=== PATIENT | male | born 1970 | race Caucasian/White ===

== ENCOUNTER 2017-07-19 18:57 | Emergency (ER) | payer BC, MEDICARE ==
[2017-07-19 19:04] VITALS: BP 146/97; PULSE 74; O2SAT 96
[2017-07-19] MEDS ORDERED: NEOSYNEPHRINE 0.5% NASAL SPRAY/DROPS NS ONE (19:15)
[2017-07-19] MEDS ORDERED: NEOSYNEPHRINE 0.5% NASAL SPRAY/DROPS ONE (19:20)
--- NOTE | 2017-07-19 19:22 | ERPHSYRPT ---
- History of Present Illness Time Seen by Provider: 07/19/17 19:10 Source: patient Exam Limitations: no limitations Patient Subjective Stated Complaint: nosebleed x 2 days; just won't stop Triage Nursing Assessment: dried blood to left nare, clamp in place on bridge of nose to control bleeding. AAO x 3 Physician History: This is a 46-year-old white male with history of myocardial infarction, high blood pressure, hypercholesterolemia and nosebleeds He arrives with complaint of bleeding off-and-on in his left naris for 2 days he states he's having a hard time stopping it today. He states he gets this occasionally he has been placing bacitracin and his nose. Past medical history includes myocardial infarction, high blood pressure, hypercholesterolemia, nosebleed Past surgical history includes cardiac stents, cholecystectomy, hernia repair Social history is positive for tobacco use patient denies alcohol or illicit drug use Severity: mild ENT Location: nose (bleeding from left nostril) Prearrival Treatment: squeezing nostrils Modifying Factors: Improves With: nothing Associated Symptoms: No ear pain (R), No ear pain (L), No cough, No fever, No chills, No change in hearing, No dizziness, No drooling, No ear drainage, No facial pain/swelling, No hearing loss, No jaw pain, No malaise, No nasal foreign body, No neck pain, No poor fluid intake, No poor solids intake, No ringing of ears, No swollen glands, No sinus infection, No sore throat, No tooth pain, No difficulty swallowing, No voice change Allergies/Adverse Reactions: atorvastatin calcium [From Lipitor] Allergy (Severe, Verified 09/03/15 16:24) Rash Home Medications: Carvedilol [Coreg] 25 mg PO BID 01/11/14 [History] Isosorbide Mononitrate 30 mg [Imdur 30 MG] 60 mg PO DAILY 01/11/14 [History ] Levothyroxine Sodium 125 mcg PO DAILY 01/11/14 [History] Pravastatin Sodium 40 mg PO HS 01/11/14 [History] Aspirin EC 325 mg [Ecotrin 325 MG] 325 mg PO DAILY 01/09/15 [History] Nifedipine [Procardia Xl] 30 mg PO DAILY 09/03/15 [History] Hx Tetanus, Diphtheria Vaccination/Date Given: No Hx Influenza Vaccination/Date Given: No Hx Pneumococcal Vaccination/Date Given: No Immunizations Up to Date: Yes - Review of Systems Constitutional: No Fever, No Chills Eyes: No Symptoms Ears, Nose, & Throat: No Symptoms, Epistaxis, No Ear Pain (anything [place] for this him hi), No Ear Discharge (m him. ), No Hearing Changes, No Tinnitus Respiratory: No Cough, No Dyspnea Cardiac: No Chest Pain, No Edema, No Syncope Abdominal/Gastrointestinal: No Abdominal Pain, No Nausea, No Vomiting, No Diarrhea, No Constipation, No Hematemesis, No Hematochezia, No Melena, No Dysphagia, No Appetite Changes Genitourinary Symptoms: No Dysuria Musculoskeletal: No Back Pain, No Neck Pain Skin: No Rash Neurological: No Dizziness, No Focal Weakness, No Sensory Changes Psychological: No Symptoms Endocrine: No Symptoms All Other Systems: Reviewed and Negative - Past Medical History Pertinent Past Medical History: Yes Neurological History: No Pertinent History ENT History: Other Cardiac History: Myocardial Infarction ([place]) Respiratory History: No Pertinent History Endocrine Medical History: Hypothyroidism Musculoskeletal History: Degenerative Disk Disease GI Medical History: GERD, Hernia History: No Pertinent History Psycho-Social History: Anxiety Male Reproductive Disorders: No Pertinent History Other Medical History: Nosebleeds - Past Surgical History Past Surgical History: Yes Neuro Surgical History: No Pertinent History Cardiac: Cardiac Catheterization, Cardiac Stent Respiratory: No Pertinent History Gastrointestinal: Cholecystectomy, Hernia Repair Genitourinary: No Pertinent History Musculoskeletal: Orthopedic Surgery Male Surgical History: No Pertinent History Other Surgical History: Lower spinal compression fractures repaired. Patient has pain in cervical spine area that has not been diagnosed or treated. - Social History Smoking Status: Current every day smoker How long have you smoked: 27 Exposure to second hand smoke: Yes Drug Use: none Patient Lives Alone: No Significant Family History: heart disease, FAMILY HISTORY OF CAD - Nursing Vital Signs Nursing Vital Signs: Initial Vital Signs Temperature 97.8 F 07/19/17 18:58 Pulse Rate 74 07/19/17 18:58 Respiratory Rate 18 07/19/17 18:58 Blood Pressure 146/97 07/19/17 18:58 O2 Sat by Pulse Oximetry 96 07/19/17 18:58 Pain Scale Pain Intensity 0 - Physical Exam Eye Exam: bilateral eye: normal inspection, PERRL, EOMI Ear Exam: bilateral ear: auricle normal, canal normal, TM normal Nasal Exam: dried blood (dried blood left naris) Throat Exam: pharynx normal, moist mucus membranes, No tonsillar exudate Neck Exam: supple Cardiovascular/Respiratory Exam: normal breath sounds, regular rate/rhythm Abdominal Exam: non-tender, soft Neurologic Exam: alert, oriented x 3, sensation nml, No motor deficits SpO2 Interpretation: normal (96%) SpO2: 96 Oxygen Delivery: Room Air - Course Nursing assessment & vital signs reviewed: Yes Ordered Tests: Medication Summary Discontinued Medications Generic Name Dose Route Start Last Admin Trade Name Charlie PRN Reason Stop Dose Admin Phenylephrine HCl 15 ml 07/19/17 19:15 07/19/17 19:21 Neosynephrine 0.5% Nasal Estelline/Drops NS 07/19/17 19:16 15 ml STAT ONE Administration Phenylephrine HCl Confirm 07/19/17 19:20 Neosynephrine 0.5% Nasal Estelline/Drops Administered 07/19/17 19:21 Dose 15 ml .ROUTE .K-MED ONE - Progress Progress: improved Progress Note: 07/19/17 19:56 Patient asked to blow his nose. Dio-Synephrine 0.5% 2 sprays placed in left naris and nose clamp reapplied. This is removed 5 minutes later no further bleeding. Will discharge patient - Departure Time of Disposition: 19:58 Departure Disposition: Home (him) Clinical Impression: Epistaxis Condition: Good Critical Care Time: No Referrals: GUTIERREZ MARCELO MD [Primary Care Provider] - Instructions: Nosebleed Additional Instructions: Return home. Dio-Synephrine 0.5% 2 sprays left naris every 4 hours as needed times one to 2 days. Use cold mist vaporizer at home. Follow-up with your family doctor if recurrent. Return for acute distress or for severe symptoms or any problems.
== END 2017-07-19 20:08 | disposition home or self-care (01) ==
LOC: ED 18:57
DX: R04.0 Epistaxis (principal); I25.2 Old myocardial infarction; I10 Essential (primary) hypertension; E78.00 Pure hypercholesterolemia, unspecified
CPT/HCPCS: 99283; 99284; A9270-GY

== ENCOUNTER 2019-02-08 19:59 | Emergency (ER) | payer BC, MEDICARE ==
[2019-02-08] MEDS ORDERED: Hydromorphone 1 mg/ml Ampule IM ONE (20:46)
[2019-02-08] MEDS ORDERED: Phenergan 25 MG INJ IM ONE (20:46)
--- NOTE | 2019-02-08 20:55 | ERPHSYRPT ---
- History of Present Illness Time Seen by Provider: 02/08/19 20:30 Source: patient Exam Limitations: clinical condition Physician History: PATIENT WITH HISTORY OF HYPERTENSION, TRIPPED AND FELL OUT OF [employer]VIRONMENT[employer]OTE[employer] TRUCK ONTO HIS BUTTOCK AND LOWER BACK. HAS HISTORY OF PREVIOUS LUMBAR SURGERY 2011. DENIES LOSS OF CONSCIOUSNESS, NECK, OR UPPER INJURY, HEADACHE, BLURRED VISION, NAUSEA OR EMESIS. DENIES NUMBNESS, TINGLING OR WEAKNESS IN EXTREMITIES. Occurred: just prior to arrival Reason for Fall: fell from standing pos Injuries/Pain Location: back, pelvis Loss of Consciousness: no loss of consciousness Quality: throbbing Severity of Pain-Max: moderate Severity of Pain-Current: moderate Modifying Factors: Improves With: movement Associated Symptoms (Fall): denies symptoms Allergies/Adverse Reactions: atorvastatin calcium [From Lipitor] Allergy (Severe, Verified 02/08/19 20:47) Rash Home Medications: Carvedilol [Coreg] 25 mg PO BID 01/11/14 [History] Isosorbide Mononitrate 30 mg [Imdur 30 MG] 60 mg PO DAILY 01/11/14 [History ] Levothyroxine Sodium 125 mcg PO DAILY 01/11/14 [History] Pravastatin Sodium 40 mg PO HS 01/11/14 [History] Aspirin EC 325 mg [Ecotrin 325 MG] 325 mg PO DAILY 01/09/15 [History] Nifedipine [Procardia Xl] 30 mg PO DAILY 09/03/15 [History] Clopidogrel Bisulfate 75 mg [PLAVIX 75 MG Tablet] 1 tab PO DAILY 02/08/19 [History] Hx Tetanus, Diphtheria Vaccination/Date Given: No Hx Influenza Vaccination/Date Given: No Hx Pneumococcal Vaccination/Date Given: No - Review of Systems Constitutional: No Symptoms Eyes: No Symptoms Ears, Nose, & Throat: No Symptoms Musculoskeletal: Back Pain, Injury Skin: No Symptoms Neurological: No Symptoms Psychological: No Symptoms Endocrine: No Symptoms Hematologic/Lymphatic: No Symptoms - Past Medical History Pertinent Past Medical History: Yes Neurological History: No Pertinent History ENT History: Other Cardiac History: Myocardial Infarction ([place]) Respiratory History: No Pertinent History Endocrine Medical History: Hypothyroidism Musculoskeletal History: Degenerative Disk Disease GI Medical History: GERD, Hernia History: No Pertinent History Psycho-Social History: Anxiety Male Reproductive Disorders: No Pertinent History Other Medical History: Nosebleeds - Past Surgical History Past Surgical History: Yes Neuro Surgical History: No Pertinent History Cardiac: Cardiac Catheterization, Cardiac Stent Respiratory: No Pertinent History Gastrointestinal: Cholecystectomy, Hernia Repair Genitourinary: No Pertinent History Musculoskeletal: Orthopedic Surgery Male Surgical History: No Pertinent History Other Surgical History: Lower spinal compression fractures repaired. Patient has pain in cervical spine area that has not been diagnosed or treated. - Social History Smoking Status: Current every day smoker How long have you smoked: 27 Exposure to second hand smoke: Yes Drug Use: none Patient Lives Alone: No Significant Family History: heart disease, FAMILY HISTORY OF CAD - Nursing Vital Signs Nursing Vital Signs: Initial Vital Signs Pulse Rate 60 02/08/19 20:00 Respiratory Rate 22 02/08/19 20:00 Blood Pressure 146/83 02/08/19 20:00 O2 Sat by Pulse Oximetry 97 02/08/19 20:00 Pain Scale Pain Intensity 6 - Worth Coma Score Best Eye Response (Worth): (4) open spontaneously Best Verbal Response (Worth): (5) oriented Best Motor Response (Worth): (6) obeys commands Worth Total: 15 - Physical Exam General Appearance: mild distress Head Injury: no evidence of injury (NO SCALP TENDERNESS OR SWELLING) Eye Exam: PERRL/EOMI ENT Exam: airway nml Neck Exam: supple, full range of motion (THERE IS NO POST CERVICAL SPINAL TENDERNESS) Respiratory/Chest Exam: normal breath sounds Cardiovascular Exam: normal heart sounds Gastrointestinal Exam: soft, normal bowel sounds Back Exam: normal inspection, decreased range of motion (TENDERNESS LUMBAR SPINE L-2 TO L-5 WITH PARASPINAL TENDERNESS) Extremity Exam: normal inspection Peripheral Pulses: carotid (R): 2+, carotid (L): 2+, femoral (R): 2+, femoral (L ): 2+, dorsalis-pedis (R): 2+ Neurologic Exam: alert, oriented x 3, cooperative, sensation nml, No motor deficits Skin Exam: normal color SpO2 Interpretation: normal SpO2: 97 - CT Exams Lumbar Spine CT Interpretation: Tele-radiologist Report (MODERATE LUMBAR SPONDYLOSIS, NO SPINAL STENOSIS, NO NEURAL FORAMINAL NARROWING.) Pelvis CT Interpretation: Tele-radiologist Report (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) Ordered Tests: Active Orders 24 hr Category Date Time Status LUMBAR SPINE W/O [CT] Stat Exams 02/08/19 20:47 Taken PELVIS WITHOUT CONTRAST [CT] Stat Exams 02/08/19 20:48 Taken Medication Summary Discontinued Medications Generic Name Dose Route Start Last Admin Trade Name Charlie PRN Reason Stop Dose Admin Hydromorphone HCl 1 mg 02/08/19 20:46 02/08/19 21:43 Hydromorphone 1 Mg/Ml Ampule IM 02/08/19 20:47 1 mg STAT ONE Administration Hydromorphone HCl Confirm 02/08/19 21:10 Hydromorphone 1 Mg/Ml Ampule Administered 02/08/19 21:11 Dose 1 mg .ROUTE .STK-MED ONE Promethazine HCl 25 mg 02/08/19 20:46 02/08/19 21:42 Phenergan 25 Mg Inj IM 02/08/19 20:47 25 mg STAT ONE Administration Promethazine HCl Confirm 02/08/19 21:09 Phenergan 25 Mg Inj Administered 02/08/19 21:10 Dose 25 mg .ROUTE .STK-MED ONE - Progress Progress Note: 02/08/19 20:55 DILAUDID 1MG/PHENERGAN 25MG IM - Departure Departure Disposition: Home Clinical Impression: ACUTE LUMBAR STRAIN Condition: Stable Critical Care Time: No Referrals: GUTIERREZ MARCELO MD [Primary Care Provider] - Additional Instructions: NORCO 5/325 EVERY 6 HOURS FOR PAIN NEEDED. NORFLEX 100MG TWICE DAILY FOR MUSCLE SPASMS. CONSULT YOUR PRIMARY CARE PROVIDER FOR FOLLOWUP AND PHYSICAL THERAPY. Prescriptions: Hydrocodone/APAP 5-325 Tab^^^ [[place] 5-325 Tablet^^^] 1 tab PO Q6HPRN PRN #10 tablet MDD 4 PRN Reason: Pain Orphenadrine Citrate 100 mg [Norflex 100 MG Tablet] 100 mg PO BID #10 tab
[2019-02-08] MEDS ORDERED: Phenergan 25 MG INJ ONE (21:09)
[2019-02-08] MEDS ORDERED: Hydromorphone 1 mg/ml Ampule ONE (21:10)
[2019-02-08] MEDS ORDERED: NORCO 5/325 MG PO ONE (23:17)
[2019-02-08] MEDS ORDERED: NORCO 5/325 MG ONE (23:25)
[2019-02-08 23:30] VITALS: BP 138/88; PULSE 62; O2SAT 99
--- NOTE | 2019-02-09 08:10 | XRAY ---
Indication: Pain following fall out of truck. Multiple contiguous axial images obtained through the pelvis with special attention to the osseous structures. Sagittal and coronal reformatted images obtained. Comparison: July 27, 2012. Right innominate bone demonstrates stable expansile appearance with increased trabeculations favoring Paget's disease. Stable tiny left superior acetabular spurring and subcortical cysts of the right acetabulum/femur head. SI joints are bilaterally symmetric. No acute fracture, dislocation, or suspicious bony lesions. Visualized noncontrasted soft tissues demonstrates mild scattered vascular calcifications. CT lumbar spine reported separately. Impression: 1. Negative acute fracture/dislocation. 2. Stable right innominate Paget's disease and bilateral hip degenerative changes. Comment: Preliminary interpretation was made by [facility]. No critical discrepancy. CTDI 43.53
--- NOTE | 2019-02-09 08:14 | XRAY ---
Indication: Pain following fall out of truck. Multiple contiguous axial images obtained through the lumbar spine. Sagittal and coronal reformatted images obtained. Comparison: None. Axial images negative for acute fracture, suspicious bony lesions, or spinal canal stenosis. Minimal multilevel degenerative endplate spurring. Mild L4-S1 broad-based disc bulge and L5-S1 degenerative vacuum disc phenomena. Facets are symmetric. Sagittal and coronal reformatted images demonstrates normal lumbar alignment with minimal L4-S1 disc space narrowing. No acute compression fracture or subluxation. Visualized noncontrasted soft tissues demonstrates 1.5 cm left mid renal cortical cyst and mild scattered aortoiliac calcifications. CT pelvis reported separately. Impression: 1. Negative acute fracture/subluxation. 2. Multilevel degenerative changes, left renal cyst, and scattered arteriosclerotic disease. Comment: Preliminary interpretation was made by [facility]. No critical discrepancy. CTDI 62.24
== END 2019-02-08 23:38 | disposition home or self-care (01) ==
LOC: ED 19:59
DX: S39.012A Strain of muscle, fascia and tendon of lower back, initial encounter (principal); W17.89XA Other fall from one level to another, initial encounter; I10 Essential (primary) hypertension; Z79.899 Other long term (current) drug therapy
CPT/HCPCS: 72131; 72192; 96372; 99284; J1170; J2550; A9270-GY